=== PATIENT | female | born 1960 | race Caucasian/White ===

== ENCOUNTER 2025-04-26 09:40 | Emergency (ER) | payer SELFPAY ==
[~2025-04-26] VITALS: Ht 175.3 cm; Wt 93.3 kg
--- NOTE | 2025-04-26 10:22 | ELECTROCARDIOGRAPH REPORT ---
[facility] Test Date: 2025-04-26 Test Time: 10:21:14 Pat Name: LISA RODRIGUEZ Department: [facility]- Patient ID: [facility]-[id number] Room: Gender: F Dining Room Maid: : 1960 Requested By: YENNY ENG Order Number: [id number] Reading MD: Dr. GUILHERME Tabor Measurements Intervals [place] Rate: 90 P: 32 AR: 164 QRS: -6 QRSD: 104 T: 13 QT: 387 QTc: 474 Interpretive Statements Sinus rhythm Baseline wander in lead(s) I,aVR Electronically Signed On 04-28-2025 18:09:[address] GUILHERME Tabor Please click the below link to view image of tracing.
[2025-04-26 10:38] LABS: MEAN PLATELET VOLUME 8.8 FL (7.4-10.4)
[2025-04-26 10:44] LABS: RED CELL DISTRIBUTION WIDTH 12.9 % (11.5-14.5)
--- NOTE | 2025-04-26 10:54 | RADIOLOGY REPORT ---
EXAM: DI CHEST,SINGLE VIEW HISTORY: CP COMPARISON: None TECHNIQUE: Portable upright AP view of the chest was performed. FINDINGS: No pneumothorax, consolidative infiltrates, or pulmonary edema. There is peribronchial thickening centrally and in the upper lobes. The heart is not enlarged. 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 IMPRESSION: 1. Reactive airways disease. 2. The lungs are otherwise clear.
[2025-04-26 11:06] LABS: CREATININE 0.72 MG/DL (0.40-0.90); PRO BRAIN NATRIURETIC PEPTIDE 110 PG/ML (0-125); TOTAL CARBON DIOXIDE 27.3 MMOL/L (24-32); eCRCL 85 ML/MIN; eGFR 82 ML/MIN
--- NOTE | 2025-04-26 11:33 | Physician Documentation ---
History of Present Illness ~ Chief Complaint: Hypertension Stated Complaint: HIGH BP Time Seen by MD: 11:28 Primary Medical Doctor: MARY ALVA IN HPI This is a 64 yr old F with history of HTN presents to the ER after being referred by her PCP for high bp. Pt endorses that she ran out of her medications yesterday and went to see her PCP for a refill. However, she had a bp of 250 in her PCP office and was referred tot he ER. On arrival her bp was 220/100. She denies any chest pain, SOB, headache or any other cardiovascular symptoms. Medication Reconciliation Allergies: Coded Allergies: aspirin (Verified Allergy, Unknown, 04/26/25) Scheduled Enalapril Maleate* (Vasotec*), 1 TAB PO DAILY Metoprolol Succinate (Metoprolol Succinate), 50 MG PO DAILY Past Medical History Past Medical History: No Pertinent History Past Surgical History: noncontributory Drug Use: none Lives In: Home Review of Systems Eyes Constitutional: No fever, chills, dizziness, weakness, weight gain or loss Eyes: No pain, erythema, discharge, blurring of vision ENT: No sore throat, epistaxis, tinnitus Cardiovascular: No palpitations, syncope, lower extremity edema, paroxysmal nocturnal dyspnea Respiratory: No hemoptysis Gastrointestinal: Normal appetite. No nausea, vomiting, diarrhea, constipation, hematemesis, abdominal pain, bloating, melena or fresh blood Genitourinary: No frequency, urgency, nocturia, hematuria or dysuria Musculoskeletal: No arthralgias or myalgias Integumentary: No change in skin, hair, nails. No swelling, bruising, abrasions Neurologic: No headache, neck pain, numbness or tingling of the extremities, weakness Psychiatric: No delusions, depression, loss of interest in normal activity or change in sleep pattern, hallucinations, suicidal ideations Endocrine: No fatigue, weakness, polydipsia, polyuria, change in appetite, heat or cold intolerance, sweating, dry skin Hematological: No bleeding, petechiae, bruising Allergies: No asthma or urticaria Physical Exam Vital Signs: Temperature: 97.6, Source: Temporal, Heart Rate: 91, Respiratory Rate: 18, BP: 221/109, Pulse Oximetry: 100, Weight: 93.300 Physical Exam General: Awake and Alert, no acute distress. HEENT: Conjunctiva pink, Sclera clear, Mucus Membranes moist Neck: Supple without masses and tenderness. Resp: Unlabored. Equal breath sounds bilaterally. Heart: Regular rhythm, normal S1 and S2, no rub, murmur or gallop, muffled heart sounds. Abdomen: Soft and non tender no organomegaly. Normal bowel sounds x4 quadrant normoactive. No guarding or rigidity. Extremities: Normal ROM, no swelling, nontender. No cyanosis,clubbing or edema. DEMO EVENT SPECIALIST: No gross motor or sensory abnormalities. Skin: Warm and Dry. Progress Results/Orders Results/Orders Orders - YENNY ENG MD Chest,Single View (04/26/25 10:40) Monitor (04/26/25 10:17) Saline Lock (04/26/25 10:17) Oxygen (04/26/25 10:17) Completed Orders - YENNY ENG MD Chest,Single View (04/26/25 10:40) Cbc/Diff (04/26/25 10:17) BMP (04/26/25 10:17) PBNP (04/26/25 10:17) Electrocardiogram (04/26/25 10:17) Hs Troponin I W Calculations (04/26/25 10:17) Hs Troponin I W Calculations (04/26/25 12:17) Medications Received in ER Medications (Trade) Dose Ordered Sig/Dee Route PRN Reason Start Time Stop Time Status Last Admin Dose Admin (Zestril tablet) 10 mg ONCE ONCE PO 04/26/25 11:15 04/26/25 11:40 DC 04/26/25 11:48 10 MG (Lopressor tablet) 50 mg ONCE ONCE PO 04/26/25 11:15 04/26/25 11:40 DC 04/26/25 11:48 50 MG Vital Signs 04/26/25 04/26/25 04/26/25 04/26/25 10:15 11:18 11:38 11:48 Temp 97.6 97.6 Pulse 91 85 87 Resp 18 12 16 B/P (MAP) 221/109 208/100 (136) Pulse Ox 100 04/26/25 04/26/25 11:48 12:41 Temp 97.6 Pulse 87 69 Resp 15 B/P (MAP) 201/81 Pulse Ox 98 Laboratory Tests Test 04/26/25 10:28 04/26/25 12:14 White Blood Count 5.0 Red Blood Count 4.70 Hemoglobin 14.7 Hematocrit 42.4 Mean Corpuscular Volume 90.2 Mean Corpuscular Hemoglobin 31.3 H Mean Corpuscular Hemoglobin Concent 34.7 Red Cell Distribution Width 12.9 Platelet Count 174 Mean Platelet Volume 8.8 Neutrophils (%) (Auto) 65.1 Lymphocytes (%) (Auto) 25.3 Monocytes (%) (Auto) 6.8 Eosinophils (%) (Auto) 2.2 Basophils (%) (Auto) 0.6 Neutrophils # (Auto) 3.3 Lymphocytes # (Auto) 1.3 Monocytes # (Auto) 0.3 Eosinophils # (Auto) 0.1 Basophils # (Auto) 0.0 CBC Comment Sodium Level 139 Potassium Level 3.7 Chloride Level 104 Carbon Dioxide Level 27.3 Anion Gap 8 Blood Urea Nitrogen 13 Creatinine 0.72 Estimated GFR/1.73 m2 82 BUN/Creatinine Ratio 18.1 Glucose Level 188 H Calcium Level 9.2 Troponin I High Sensitivity 16 24 Pro-B-Type Natriuretic Peptide 110 Albumin 3.9 Chemistry Comments Troponin I High Sens Percent Delta 50 Troponin I Hi Sens Absolute Change 8 EKG/XRAY/CT/US/VASC/MRI EKG : Additional Comment I personally interpreted the EKG and this shows: Sinus rhythm, rate 90, QTC 474, no STEMI Chest X-Ray : Additional Comments I personally interpreted the x-ray, and it shows: No focal consolidation, no pneumothorax, no mediastinal widening Medical Decision Making Additional information obtaine: other Findings The patient's blood pressure improved after administering her regular home blood pressure medications lisinopril 10 mg and metoprolol 50 mg. Chest x-ray revealed no acute cardio pulmonary abnormalities. EKG showed sinus rhythm with a prolonged QTC of 470 milliseconds. Patient endorsed occasional palpitations and occasional chest pain and was advised to follow up with the band sawmill operator through her PCP after discharge for echocardiogram and heart monitor. Differential Dx:Considerations: Include CHF, Include HTN, essential, Include HTN, accelerated, Include HTN, malignant, Include HTN, encephalopathy, Include medical noncompliance, Include medication withdrawal, Include pulmonary edema, Include renal failure, Include -induced, Include other Additional Information Hypertensive urgency Addendum I supervised the resident physician during the evaluation and treatment of this patient. I also performed an independent evaluation and exam. The patient presents with asymptomatic hypertension. Her workup was unremarkable, no evidence of end-organ damage. No evidence of hypertensive emergency. She will be given her home blood pressure medications and discharged. She will keep a journal of her blood pressures and follow up in 1 month with her primary clinic for medication adjustment. Departure Disposition: HOME / SELF CARE / HOMELESS Impression: Primary Impression: Hypertensive urgency Additional Impression: Benign hypertension Condition: Stable Discharge Instructions: Hypertension, Adult, Hypertension, Adult, [id number] Additional Instructions: Follow up with your PCP in a week. We have sent prescription for blood pressure medications for two weeks. Take your medicine regularly and advice monitoring your blood pressure at home regularly. Return to the ER if you have chest pain, shortness of breath or blood pressure greater than 220/120 mmHg. Referrals: NO PRIMARY CARE PROVIDER (PCP) Prescriptions Metoprolol Succinate (Metoprolol Succinate) 25 Mg Tab.sr.24h 50 MG PO DAILY for 14 Days, #14 TAB.SR 0 Refills Prov: EDEL MAST, RES 04/26/25 Enalapril Maleate* (Vasotec*) 10 Mg Tablet 1 TAB PO DAILY for 14 Days, #14 TAB Prov: EDEL MAST, RES 04/26/25 Education Educated: Patient Educated regarding: diagnosis, treatment, prognosis, need for follow up Signature Scribe Signature: No scribe Attestation: PGY2 resident attestation: Patient was seen and examined with attending doctor Dr. Abhijit Locke MD PGY 2 internal medicine resident EDEL MAST, RES Apr 26, 2025 11:33 YENNY ENG MD Apr 26, 2025 18:40
[2025-04-26] MEDS ORDERED: METO-395 PO (11:47)
[2025-04-26] MEDS ORDERED: ENAL10TA78 PO (11:47)
[2025-04-26 12:41] VITALS: BP 201/81; PULSE 69; RESP 15; TEMP 97.6; O2SAT 98
== END 2025-04-26 12:44 | disposition home or self-care (01) ==
LOC: ER 09:41
DX: I16.0 Hypertensive urgency (principal); I10 Essential (primary) hypertension; Z88.6 Allergy status to analgesic agent; Z79.899 Other long term (current) drug therapy
CPT/HCPCS: 36415; 71045; 80048; 83880; 84484; 85025; 93005; 99285